=== PATIENT | male | born 1960 | race Caucasian/White ===

== ENCOUNTER 2017-06-22 11:05 | Emergency (ER) | payer OTHER ==
[2017-06-22 11:11] VITALS: BP 186/81
--- NOTE | 2017-06-22 11:25 | ER Document Report ---
ED Extremity Problem, Upper - General Chief Complaint: Arm Pain Stated Complaint: RIGHT ARM PAIN Time Seen by Provider: 06/22/17 11:14 Notes: 57 yo male c/o pain to right arm x 2 days. pt reports he was lifting a board at work and twisted his arm. Feels pain in right bicep and right lower arm. TRAVEL OUTSIDE OF THE [place] 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 No: Swelling Onset: Yesterday Recent injury: Possibly Where: Work Quality of pain: Achy Arm and Shoulder (Right): 1 - mid right bicep tenderness 2 - right lateral epicondyle tenderness Associated symptoms: None Exacerbated by: Movement Relieved by: Nothing Similar symptoms previously: No - Related Data Allergies/Adverse Reactions: No Known Allergies Allergy (Unverified 06/22/17 11:10) Past Medical History - General Information source: Patient - Social History Smoking Status: Former Smoker Frequency of alcohol use: None Drug Abuse: None Lives with: Family Family History: Reviewed & Not Pertinent Renal/ Medical History: Denies: Hx Peritoneal Dialysis Review of Systems - Review of Systems Constitutional: No symptoms reported EENT: No symptoms reported Cardiovascular: No symptoms reported Respiratory: No symptoms reported Gastrointestinal: No symptoms reported Genitourinary: No symptoms reported Male Genitourinary: No symptoms reported Musculoskeletal: See HPI Skin: No symptoms reported Hematologic/Lymphatic: No symptoms reported Neurological/Psychological: No symptoms reported Physical Exam - Vital signs Vitals: Temp Pulse Resp BP Pulse Ox 98.4 F 82 18 186/81 H 97 06/22/17 11:10 06/22/17 11:10 06/22/17 11:10 06/22/17 11:10 06/22/17 11:10 Interpretation: Normal - General General appearance: Appears well, Alert - HEENT Head: Normocephalic, Atraumatic Eyes: Normal Pupils: PERRL - Respiratory Respiratory status: No respiratory distress Chest status: Nontender Breath sounds: Normal Chest palpation: Normal - Cardiovascular Rhythm: Regular Heart sounds: Normal auscultation Murmur: No - Abdominal Inspection: Normal Distension: No distension Bowel sounds: Normal Tenderness: Nontender Organomegaly: No organomegaly - Back Back: Normal, Nontender - Extremities General upper extremity: Normal color, Normal ROM, Normal temperature General lower extremity: Normal inspection, Nontender, Normal color, Normal ROM , Normal temperature, Normal weight bearing. No: Verito's sign Shoulder: Normal, Nontender - FROM Arm: Tender - focal tenderness mid bicep. no edema, echymosis, deformity. Elbow: Tender - + focal tenderness right lateral epicondyle Wrist: Normal - FROM, Nontender - Neurological Neuro grossly intact: Yes Cognition: Normal Orientation: AAOx4 [place] Coma Scale Eye Opening: Spontaneous [place] Coma Scale Verbal: Oriented [place] Coma Scale Motor: Obeys Commands [place] Coma Scale Total: 15 Speech: Normal Motor strength normal: LUE, RUE, LLE, RLE Sensory: Normal - Psychological Associated symptoms: Normal affect, Normal mood - Skin Skin Temperature: Warm Skin Moisture: Dry Skin Color: Normal Course - Re-evaluation Re-evalutation: 06/22/17 11:32 no bony tenderness. no xray indicated. pain localized to bicep and right lateral epiconyle. deneis chest pain, shortness of breath. low risk for cardiac source of pain. no circulatory compromise. pt is stable for discharge and agreeable with plan. - Vital Signs Vital signs: Temp Pulse Resp BP Pulse Ox 98.4 F 82 18 186/81 H 97 06/22/17 11:10 06/22/17 11:10 06/22/17 11:10 06/22/17 11:10 06/22/17 11:10 Discharge - Discharge Clinical Impression: Right lateral epicondylitis Injury of right upper arm Qualifiers: Encounter type: initial encounter Qualified Code(s): S49.91XA - Unspecified injury of right shoulder and upper arm, initial encounter Strain of right biceps Qualifiers: Encounter type: initial encounter Qualified Code(s): S46.211A - Strain of muscle, fascia and tendon of other parts of biceps, right arm, initial encounter Condition: Stable Disposition: HOME, SELF-CARE Instructions: Muscle Strain ([facility]), Tennis Elbow (Lateral Epicondylitis) ([facility]), Ibuprofen (General) ([facility]), Muscle Relaxers ([facility]), Ice Packs ([facility]), Warm Packs ( [facility]) Additional Instructions: You have strained the muscle and tendon in your arm Please take medications as prescribed alternate ice/heat to sore area rest affected arm follow up with primary care if symptoms persist or worsen Prescriptions: Ibuprofen [Motrin 800 Mg Tablet] 800 mg PO Q6H #20 tablet Methocarbamol [Robaxin 500 Mg Tablet] 1,000 mg PO Q6 #30 tablet Forms: Return to Work
== END 2017-06-22 11:45 | disposition home or self-care (01) ==
LOC: ER 11:05
DX: S46.211A Strain of muscle, fascia and tendon of other parts of biceps, right arm, initial encounter (principal); M77.11 Lateral epicondylitis, right elbow; X50.0XXA Overexertion from strenuous movement or load, initial encounter; Y93.89 Activity, other specified; Y99.0 Civilian activity done for income or pay; R53.1 Weakness; Z87.891 Personal history of nicotine dependence
CPT/HCPCS: 99283

== ENCOUNTER 2019-05-14 20:08 | Emergency (ER) | payer MEDICAID, OTHER ==
[2019-05-14] MEDS ORDERED: PREDNISONE 20 MG TABLET PO ONE (21:42)
[2019-05-14] MEDS ORDERED: IPRATROPIUM/ALBUTEROL 0.5-2.5 MG/3 ML AMPUL NEB ONE (21:42)
--- NOTE | 2019-05-14 21:45 | ER Document Report ---
ED Medical Screen (RME) - General Chief Complaint: Shortness Of Breath Stated Complaint: DIFFICULTY BREATHING Time Seen by Provider: 05/14/19 21:42 Primary Care Provider: SHERYL ARAGON MD [Primary Care Provider] - Follow up as needed Notes: 59-year-old male chief complaint of shortness of breath, cough, wheezing worsening over the past 2 weeks. He denies fever/chills, denies chest pain, has coughed up both whitish and yellowish sputum. He is a former smoker, he is not diagnosed with COPD or asthma, he denies any cardiac or pulmonary history including congestive heart failure. He denies swelling in his legs. TRAVEL OUTSIDE OF THE [place] IN LAST 30 DAYS: No - Related Data Allergies/Adverse Reactions: No Known Allergies Allergy (Unverified 06/22/17 11:10) Past Medical History Renal/ Medical History: Denies: Hx Peritoneal Dialysis Past Surgical History: Reports: Hx Orthopedic Surgery - Immunizations Hx Diphtheria, Pertussis, Tetanus Vaccination: Yes Physical Exam - Vital signs Vitals: Temp Pulse Resp BP Pulse Ox 98.5 F 88 22 H 167/80 H 94 05/14/19 20:42 05/14/19 20:42 05/14/19 20:42 05/14/19 20:42 05/14/19 20:42 - Respiratory Respiratory status: Other - Borderline mild tachypnea but no respiratory distress Breath sounds: Wheezing - Loud expiratory wheezing throughout, still has air movement noted, no rales or rhonchi noted Course - Re-evaluation Re-evalutation: I have greeted and performed a rapid initial assessment of this patient. A comprehensive ED assessment and evaluation of the patient, analysis of test results and completion of the medical decision making process will be conducted by additional ED providers. - Vital Signs Vital signs: Temp Pulse Resp BP Pulse Ox 98.5 F 88 22 H 167/80 H 94 05/14/19 20:42 05/14/19 20:42 05/14/19 20:42 05/14/19 20:42 05/14/19 20:42 Doctor's Discharge - Discharge Referrals: SHERYL ARAGON MD [Primary Care Provider] - Follow up as needed
[2019-05-14 22:43] LABS: ABSOLUTE BASOPHILS # (AUTO) 0.1 10^3/uL (0.0-0.2); ABSOLUTE LYMPHOCYTES (AUTO) 1.6 10^3/uL (0.5-4.7); ABSOLUTE MONOCYTES (AUTO) 0.9 10^3/uL (0.1-1.4); ABSOLUTE NEUT (AUTO) 5.2 10^3/uL (1.7-8.2); EOSINOPHILS % (AUTO) 11.3 % (0-6); HEMATOCRIT 42.2 % (37.9-51.0); HEMOGLOBIN 14.6 g/dL (13.5-17.0); LYMPHOCYTES % (AUTO) 18.1 % (13-45); MEAN CORPUSCULAR HEMOGLOBIN 30.6 pg (27.0-33.4); MEAN CORPUSCULAR HGB CONC 34.6 g/dL (32.0-36.0); MEAN CORPUSCULAR VOLUME 89 fl (80-97); PLATELET COUNT 169 10^3/uL (150-450); RED BLOOD COUNT 4.77 10^6/uL (4.35-5.55); RED CELL DISTRIBUTION WIDTH 13.9 % (11.5-14.0); SEGMENTED NEUTROPHILS % (AUTO) 59.6 % (42-78); TOTAL CELLS COUNTED % (AUTO) 100 %; WHITE BLOOD COUNT 8.8 10^3/uL (4.0-10.5)
--- NOTE | 2019-05-14 22:52 | RADIOLOGY REPORT (SQ) ---
EXAM DESCRIPTION: XR CHEST 2 VIEWS COMPLETED DATE/TME: 05/14/2019 21:42 CLINICAL HISTORY: 59 years, Male, shortness of breath COMPARISON: None. NUMBER OF VIEWS: 2 TECHNIQUE: 2 view chest LIMITATIONS: None. FINDINGS: Heart size normal. Underlying COPD. Osteopenia. 4 mm nodular density of the right upper lobe likely reflects granuloma. If the patient has no prior studies for comparison consider follow-up with CT. IMPRESSION: COPD. 4 mm nodular density right upper lobe likely reflects granuloma. If the patient has no prior exams for comparison consider follow-up with CT. copyright 2010 [employer]- All Rights Reserved
[2019-05-14 23:02] LABS: ANION GAP 9 (5-19); BLOOD UREA NITROGEN 13 mg/dL (7-20); CALCIUM 9.3 mg/dL (8.4-10.2); CARBON DIOXIDE 32 mmol/L (22-30); CHLORIDE 100 mmol/L (98-107); GLUCOSE 95 mg/dL (75-110); POTASSIUM 4.2 mmol/L (3.6-5.0)
[2019-05-15] MEDS ORDERED: BUDESONIDE NEB 0.5 MG/2 ML AMPUL NEB ONE (01:48)
[2019-05-15] MEDS ORDERED: IPRATROPIUM/ALBUTEROL 0.5-2.5 MG/3 ML AMPUL NEB ONE (01:48)
--- NOTE | 2019-05-15 01:48 | ER Document Report ---
ED General - General Chief Complaint: Shortness Of Breath Stated Complaint: DIFFICULTY BREATHING Time Seen by Provider: 05/14/19 21:42 Primary Care Provider: [facility] [Provider Group] - Follow up in 3-5 days LY VIEIRA MD [ACTIVE STAFF] - Follow up in 3-5 days Notes: Patient is a patient is a 59-year-old male that presents to the emergency department for chief complaint of shortness of breath and wheezing. Patient reports that he is been having wheezing and progressive shortness of breath over the past 2 weeks, to the point he decided come to the emergency department. He states he is occasionally had a productive cough, but not constant. States he was a former smoker, but never diagnosed with COPD or emphysema. He denies having any associated fevers, chills, night sweats, chest pain, nausea, vomiting or abdominal pain. Shortness of breath is worse with exertion. 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 His still smokes he states he did quit. Past Medical History: Osteoarthritis Past Surgical History: Shoulder surgery, wrist surgery Social History: Former smoker, quit over 10 years ago, denies alcohol or drug use. Family History: Reviewed and noncontributory for presenting illness Allergies: Reviewed, see documented allergy list. REVIEW OF SYSTEMS: Other than noted above, the 12 point review of systems was reviewed with the patient and were negative, all pertinent findings are included in the HPI. PHYSICAL EXAMINATION: Vital signs reviewed, nursing noted reviewed. GENERAL: Well-appearing, well-nourished and in no acute distress. HEAD: Atraumatic, normocephalic. EYES: Eyes appear normal, extraocular movements intact, sclera anicteric, conjunctiva are normal. ENT: nares patent, oropharynx clear without exudates. Moist mucous membranes. NECK: Normal range of motion, supple without lymphadenopathy LUNGS: Diffuse wheezing throughout all lung salcedo, no increased work of breathing, no respiratory distress. HEART: Regular rate and rhythm without murmurs ABDOMEN: Soft, nontender, normoactive bowel sounds. No rebound, guarding, or rigidity. No masses appreciated. EXTREMITIES: Nontender, good range of motion, no pitting or edema. NEUROLOGICAL: No focal neurological deficits. Moves all extremities spontaneously Motor and sensory grossly intact on exam. PSYCH: Normal mood, normal affect. SKIN: Warm, Dry, normal turgor, no rashes or lesions noted on exposed skin TRAVEL OUTSIDE OF THE [place] IN LAST 30 DAYS: No - Related Data Allergies/Adverse Reactions: No Known Allergies Allergy (Unverified 06/22/17 11:10) Past Medical History - Social History Smoking Status: Unknown if Ever Smoked Family History: Reviewed & Not Pertinent Patient has suicidal ideation: No Patient has homicidal ideation: No Renal/ Medical History: Denies: Hx Peritoneal Dialysis Past Surgical History: Reports: Hx Orthopedic Surgery - Immunizations Hx Diphtheria, Pertussis, Tetanus Vaccination: Yes Physical Exam - Vital signs Vitals: Temp Pulse Resp BP Pulse Ox 98.5 F 88 22 H 167/80 H 94 05/14/19 20:42 05/14/19 20:42 05/14/19 20:42 05/14/19 20:42 05/14/19 20:42 Course - Re-evaluation Re-evalutation: Patient seen and examined vital signs reviewed. Laboratory data and/or imaging were ordered as appropriate for the patient's presenting symptoms and complaint, with consideration of any critical or life threatening conditions that may be associated with their obtained history and exam as noted above. Patient was treated with DuoNeb breathing treatments, prednisone, and inhaled budesonide Results were reviewed when available and demonstrated chest x-ray is negative for acute process, note was a pulmonary nodule, patient was made aware of this finding, and advised follow-up imaging as outpatient, blood work was unremarkable. The patient was re-evaluated and was stable and improved Evaluation was most consistent with bronchospasm, likely underlying COPD, will prescribe albuterol, prednisone, and advised follow-up with primary care, also has incidental pulmonary nodule advise follow-up for this as well. Results were discussed with the patient at this point, after careful consideration I feel that that patient can be discharged from the emergency department, the patient was educated treatments and reasons to return to the emergency department based on their presumed diagnosis as noted above, they were advised to followup with a primary care physician in 2-3 days. Patient was agreeable to plan of care. *Note is created using voice recognition software and may contain spelling, syntax or grammatical errors. Laboratory 05/14/19 05/14/19 22:31 22:31 WBC 8.8 RBC 4.77 Hgb 14.6 Hct 42.2 MCV 89 MCH 30.6 MCHC 34.6 RDW 13.9 Plt Count 169 Seg Neutrophils % 59.6 Lymphocytes % 18.1 Monocytes % 10.0 Eosinophils % 11.3 H Basophils % 1.0 Absolute Neutrophils 5.2 Absolute Lymphocytes 1.6 Absolute Monocytes 0.9 Absolute Eosinophils 1.0 H Absolute Basophils 0.1 Sodium 140.9 Potassium 4.2 Chloride 100 Carbon Dioxide 32 H Anion Gap 9 BUN 13 Creatinine 1.03 Est GFR ( Amer) > 60 Est GFR (Non-Af Amer) > 60 Glucose 95 Calcium 9.3 Chest X-Ray 05/14/19 21:42 IMPRESSION: COPD. 4 mm nodular density right upper lobe likely reflects granuloma. If the patient has no prior exams for comparison consider follow-up with CT. copyright 2010 [employer]- All Rights Reserved - Vital Signs Vital signs: Temp Pulse Resp BP Pulse Ox 98.4 F 70 20 153/81 H 95 05/15/19 02:49 05/15/19 02:49 05/15/19 02:49 05/15/19 02:49 05/15/19 02:49 - Laboratory Result Diagrams: 05/14/19 22:31 05/14/19 22:31 Laboratory results interpreted by me: 05/14/19 05/14/19 22:31 22:31 Eosinophils % 11.3 H Absolute Eosinophils 1.0 H Carbon Dioxide 32 H Discharge - Discharge Clinical Impression: Acute bronchitis with bronchospasm, Pulmonary nodule Condition: Stable Disposition: HOME, SELF-CARE Instructions: Bronchitis With Bronchospasm (Wheezing) ([facility]) Additional Instructions: Please follow-up with primary care physician, to groups have been listed with your discharge paperwork, please take all medications as prescribed, if your symptoms are worsening or not improving over the next 24 to 48 hours, do not hesitate to return to the emergency department. Please follow-up with your primary care regarding the pulmonary nodule, that was seen on your chest x-ray today. Prescriptions: RX: Prednisone [Deltasone 20 mg Tablet] 3 tab PO DAILY 5 Days #15 tablet Referrals: LY VIEIRA MD [ACTIVE STAFF] - Follow up in 3-5 days [facility] [Provider Group] - Follow up in 3-5 days
[2019-05-15] MEDS ORDERED: ALBUTEROL SULFATE HFA (90 MCG/PUFF) 8 GM MDI (1 MDI/ER DISP) IH ONE (02:03)
[2019-05-15 02:49] VITALS: BP 153/81
== END 2019-05-15 02:50 | disposition home or self-care (01) ==
LOC: ER 20:08
DX: J20.9 Acute bronchitis, unspecified (principal); R91.1 Solitary pulmonary nodule; R06.00 Dyspnea, unspecified; M19.90 Unspecified osteoarthritis, unspecified site; Z87.891 Personal history of nicotine dependence
CPT/HCPCS: 36415; 85025; 80048; 71046; J7512; J3490 ×2; J7620 ×2; 94640; 99285

== ENCOUNTER → 2020-06-19 | Day surgery (SDC) | payer MEDICAID ==
[~2020-06-19] MED LIST: BUPIVACAINE HCL 0.5 % INJ/PF 30 ML SDV ONE; METHYLPREDNISOLONE ACETATE INJ 80 MG/1 ML VIAL ONE
--- NOTE | 2020-06-19 15:01 | RADIOLOGY REPORT (SQ) ---
EXAM DESCRIPTION: INJECT/ASPIR HIP/SHLDR/KNEE; FLUORO/NEEDLE PLACEMENT IMAGES COMPLETED DATE/TIME: 06/19/2020 2:27 pm REASON FOR STUDY: M25.552 PAIN IN LEFT HIP M25.552 PAIN IN LEFT HIP COMPARISON: None. FLUOROSCOPY TIME: 1.4 minutes 1 images saved to PACS. LIMITATIONS: None. PROCEDURE: SITE OF INJECTION: Left ileo psoas bursa LOCALIZING CONTRAST TYPE AND DOSE: 4 mL Omnipaque MEDICATION TYPE AND DOSE: 80 mg Depo-Medrol, 7 mL 0.5% bupivacaine. Using local anesthesia and sterile technique with fluoroscopic guidance, the needle was advanced into the left iliopsoas bursa. Iodinated contrast was injected to verify placement. This was followed by therapeutic injection of the indicated medications. The needle was removed. There were no immediat e complications. Preprocedure pain level: 3/10. Postprocedure pain level: 0/10. IMPRESSION: THERAPEUTIC INJECTION OF THE LEFT ILEO PSOAS BURSA ABOVE. COMMENT: Patient medication list reviewed: Yes- Quality ID# [id number]:Eligible professional attests to doc umenting in the medical record they obtained, updated, or reviewed the patient's current medications. . Quality ID 145: Final reports for procedures using fluoroscopy that document radiation exposure naida kate, or exposure time and number of fluorographic images (if radiation exposure indices are not avail able) TECHNICAL DOCUMENTATION: JOB ID: [id number] 2010 [employer]- All Rights Reserved Reading location - IP/workstation name: [email or web address] [id number]
--- NOTE | 2020-06-19 15:01 | RADIOLOGY REPORT (SQ) ---
EXAM DESCRIPTION: INJECT/ASPIR HIP/SHLDR/KNEE; FLUORO/NEEDLE PLACEMENT IMAGES COMPLETED DATE/TIME: 06/19/2020 2:27 pm REASON FOR STUDY: M25.552 PAIN IN LEFT HIP M25.552 PAIN IN LEFT HIP COMPARISON: None. FLUOROSCOPY TIME: 1.4 minutes 1 images saved to PACS. LIMITATIONS: None. PROCEDURE: SITE OF INJECTION: Left ileo psoas bursa LOCALIZING CONTRAST TYPE AND DOSE: 4 mL Omnipaque MEDICATION TYPE AND DOSE: 80 mg Depo-Medrol, 7 mL 0.5% bupivacaine. Using local anesthesia and sterile technique with fluoroscopic guidance, the needle was advanced into the left iliopsoas bursa. Iodinated contrast was injected to verify placement. This was followed by therapeutic injection of the indicated medications. The needle was removed. There were no immediat e complications. Preprocedure pain level: 3/10. Postprocedure pain level: 0/10. IMPRESSION: THERAPEUTIC INJECTION OF THE LEFT ILEO PSOAS BURSA ABOVE. COMMENT: Patient medication list reviewed: Yes- Quality ID# [id number]:Eligible professional attests to doc umenting in the medical record they obtained, updated, or reviewed the patient's current medications. . Quality ID 145: Final reports for procedures using fluoroscopy that document radiation exposure naida kate, or exposure time and number of fluorographic images (if radiation exposure indices are not avail able) TECHNICAL DOCUMENTATION: JOB ID: [id number] 2010 [email or web address]- All Rights Reserved Reading location - IP/workstation name: [email or web address] [id number]
== END ==
LOC: RAD 13:38
PROVIDERS: ATTEND Orthopaedic Surgery Sports Medicine
DX: M25.552 Pain in left hip (principal)
CPT/HCPCS: 20610; 77002; J3490; J1040